=== PATIENT | male | born 1950 | race Caucasian/White ===

== ENCOUNTER → 2016-12-05 | Outpatient (CLI) | payer OTHER ==
--- NOTE | ~2016-12-05 | CR63 ---
[facility]. [facility] A Service of [facility] & [facility] RADIOLOGY TEXT RESULTS PATIENT: KATELYN ALVAREZ LOCATION: [facility] : 50 UNIT #: [id number] AGE: [address]: BRITTNEY MORGAN APRN SEX: M ORDER DR: [id number] [address] [address] [id number] O MR#: [id number] Acc #: [id number] NAME: KATELYN ALVAREZ : 1950 SEX: M STUDY DATE/TIME: 12/05/2016 11:23 UNIT: [facility] ROOM: STUDY DESCRIPTION: CR Chest 2 View Attending Physician: Brittney Morgan Aprn Ordering Physician: Brittney Morgan Aprn MEDICAL IMAGING REPORT This report is preliminary unless electronic signature is present. EXAM Chest PA and lateral 12/05/2016 HISTORY Shortness of breath for 3 months. Benign essential hypertension. Smoking history for 30 years. FINDINGS Two views of the chest were obtained. The lungs are clear. The heart and mediastinum have a normal contour, and the heart size is normal. No pleural effusions are seen. The lungs are hyperinflated, consistent with chronic obstructive pulmonary disease. There is no evidence of active disease. IMPRESSION Chronic obstructive pulmonary disease. No active disease. Dictated by... Mo Curry M.D. THIS IS AN ELECTRONICALLY VERIFIED REPORT Mo Curry M.D. at 12/06/2016 7:28 AM VANE/donald TD: 12/05/2016 20:13 JOB #: [id number] MEDICAL IMAGING REPORT Page 1 of 1
== END | disposition home or self-care (01) ==
LOC: SRAD 11:14
DX: R06.02 Shortness of breath (principal); J44.9 Chronic obstructive pulmonary disease, unspecified
CPT/HCPCS: 71020